=== PATIENT | female | born 1975 | race Caucasian/White ===

== ENCOUNTER → 2016-11-09 | Outpatient (CLI) | payer BC ==
--- NOTE | 2016-11-10 10:10 | MM ---
Reason for exam: clinical finding. Baseline mammogram. History: Patient had first child at age 31. Family history of breast cancer in maternal aunt at age 53. Indicated problem(s): lump or thickening in the left breast. Physical Findings: Nurse Summary: 3cm nodule in the left breast at 1 o'clock (nurse mm). MG 3D Diag Mammo W/Cad ASHLEE Bilateral CC and MLO view(s) were taken. The breast tissue is extremely dense which could obscure a lesion on mammography. Finding: There are fine, diffuse, regional calcifications in both breasts, follow up in 6 months. Focal asymmetry left breast anterior at palpable abnormality for which an ultrasound is recommended. Clinically manage. These results were verbally communicated with the patient and result sheet given to the patient on 11/09/16. ASSESSMENT: Probably benign, BI-RAD 3 RECOMMENDATION: Follow-up diagnostic mammogram of both breasts in 6 months. Manage on a clinical basis with regard to palpable.
--- NOTE | 2016-11-10 10:16 | USB ---
Reason for exam: additional evaluation requested from abnormal screening. History: Patient had first child at age 31. Family history of breast cancer in maternal aunt at age 53. US Breast Limited LT Left breast ultrasound demonstrates two cystic lesions at 12 o'clock measuring 2.8 x 2.0 x 2.9cm and 2.5 x 2.0 x 2.7cm. These results were verbally communicated with the patient and result sheet given to the patient on 11/09/16. ASSESSMENT: Benign, BI-RAD 2 RECOMMENDATION: Follow-up diagnostic mammogram of both breasts in 6 months. Manage patient on a clinical basis.
== END | disposition home or self-care (01) ==
LOC: RADMAMWWP 14:57
PROVIDERS: ATTEND Obstetrics & Gynecology
DX: N63 Unspecified lump in breast (principal)
CPT/HCPCS: 76642; G0204; G0279

== ENCOUNTER → 2022-05-17 | Outpatient (CLI) | payer BC | END | disposition home or self-care (01) | LOC: LABWHC1 10:06 | PROVIDERS: ATTEND Obstetrics & Gynecology Obstetrics | DX: E55.9 Vitamin D deficiency, unspecified (principal); E53.9 Vitamin B deficiency, unspecified; L65.9 Nonscarring hair loss, unspecified; N83.202 Unspecified ovarian cyst, left side; N95.1 Menopausal and female climacteric states | CPT/HCPCS: 36415; 82306; 82607 ==